=== PATIENT | female | born 1975 | race Caucasian/White ===

== ENCOUNTER 2017-04-17 15:50 | Emergency (ER) | payer OTHER ==
[2017-04-17] MEDS ORDERED: Acetaminophen 500 MG TAB ONE (16:30)
--- NOTE | 2017-04-17 21:09 | RAD ---
PELVIS ONE VIEW: Date: 04-17-17 FINDINGS: The bony pelvis appears intact with no acute fracture evident. The SI joints are symmetrical and the symphysis shows no widening or off set. The pubic rings appear intact, as do each of the hips. The hi p joints are normal in width. IMPRESSION: No acute findings. POS: HOME
--- NOTE | 2017-04-17 21:11 | RAD ---
CHEST TWO VIEWS: Date: 04-17-17 Comparison: 04-20-15 done at [facility]. FINDINGS: The heart is normal in size. There is no mediastinal widening or shift. Lungs are clear with no infil trate, effusion, or pneumothorax. No fractures were noted. Bony spurring is seen at the right AC join t. IMPRESSION: No acute thoracic findings. POS: HOME
== END 2017-04-17 16:34 | disposition home or self-care (01) ==
LOC: BURERS 15:50
DX: M25.511 Pain in right shoulder (principal); W01.0XXA Fall on same level from slipping, tripping and stumbling without subsequent striking against object, initial encounter
CPT/HCPCS: 71046; 72170